=== PATIENT | female | born 1990 | race Caucasian/White ===

== ENCOUNTER 2017-02-23 14:24 | Emergency (ER) | payer OTHER ==
[2017-02-23 15:02] VITALS: BP 105/71
--- NOTE | 2017-02-23 15:40 | XRAY Preliminary Report ---
Exam: XR Toe(s) LT IMPRESSION: Nearly nondisplaced fifth proximal phalangeal fracture. [facility] SITE ID: [id number]
--- NOTE | 2017-02-23 15:43 | XRAY Report ---
EXAM: LEFT FIFTH TOE RADIOGRAPHY EXAM DATE: 02/23/2017 03:32 PM. CLINICAL HISTORY: Pain after injury. COMPARISON: None. TECHNIQUE: 3 views. FINDINGS: Bones: Oblique fracture through the fifth proximal phalangeal mid shaft with almost complete appositi on. Otherwise unremarkable. Joints: Normal. No subluxations. Soft Tissues: Soft tissue swelling. IMPRESSION: Nearly nondisplaced fifth proximal phalangeal fracture. [facility] Referring Provider Line: [phone] SITE ID: [id number]
--- NOTE | 2017-02-23 16:00 | ED Physician Documentation ---
PD HPI LOWER EXT INJURY - Stated complaint Stated Complaint: LT TOE PX - Chief complaint Chief Complaint: Ext Problem - History obtained from History obtained from: Patient - History of Present Illness PD HPI LOW EXT INJURY LOCATION: Right, Toe Type of injury: Blunt / blow Where injury occurred: Other (indoor child play area) Timing - onset: Today Timing - duration: Hours Timing - details: Abrupt onset, Still present Improved by: Rest, Immobilization Worsened by: Moving, Palpating Associated symptoms: Swelling. No: Weakness, Numbness, Tingling Contributing factors: No: Anticoagulated Similar symptoms before: Has not had sx before Recently seen: Not recently seen - Additional information Additional information: 26-year-old female was in a child's play area when she stubbed her little toe on a piece of equipment there. She has had pain in the area since then and as pain with weightbearing. Review of Systems Constitutional: denies: Fever Respiratory: denies: Cough GI: denies: Vomiting Skin: denies: Rash Musculoskeletal: reports: Extremity pain, Pain with weight bearing. denies: Neck pain, Back pain Neurologic: denies: Generalized weakness, Focal weakness, Numbness PD PAST MEDICAL HISTORY - Past Medical History Past Medical History: Yes Cardiovascular: Other Endocrine/Autoimmune: HyPOthyroidism Other Past Medical History: MVP ( mytrial valve prolapse) - Past Surgical History Past Surgical History: No - Present Medications Home Medications: Ambulatory Orders Medication Instructions Recorded Confirmed Levothyroxine Sodium [Synthroid] 88 mcg .ROUTE DAILY 02/23/17 02/23/17 Sertraline HCl [Zoloft] 20 mg PO DAILY 02/23/17 02/23/17 - Allergies Allergies/Adverse Reactions: Allergies Allergy/AdvReac Type Severity Reaction Status Date / Time cefaclor [From Ceclor] Allergy Edema Verified 02/23/17 15:40 - Social History Does the pt smoke?: No Smoking Status: Never smoker Does the pt drink ETOH?: Yes ETOH Use: Beer, Liquor Does the pt have substance abuse?: No - Immunizations Immunizations are current?: Yes - POLST Patient has POLST: No PD ED PE NORMAL - Vitals Vital signs reviewed: Yes (Normal) - General General: Alert and oriented X 3, No acute distress, Well developed/nourished - HEENT HEENT: Atraumatic - Respiratory Respiratory: No respiratory distress - Derm Derm: Normal color, Warm and dry, No rash - Extremities Extremities: No deformity, No edema, Other (There is point tenderness over the fifth toe on the left foot. There is not pain over the distal MT but over the proximal phlange. The distal n/v is intact. ) - Neuro Neuro: No motor deficit, No sensory deficit - Psych Psych: Normal mood, Normal affect Results - Vitals Vitals: Vital Signs - 24 hr 02/23/17 14:30 Temperature 37.1 C Heart Rate 79 Respiratory 14 Rate Blood Pressure 105/71 O2 Saturation 100 Oxygen O2 Source Room air - Rads (name of study) Left toes Radiology: Prelim report reviewed (Impression: Nearly nondisplaced fifth proximal phalange fracture.), EMP read indepedently, See rad report PD MEDICAL DECISION MAKING - ED course Complexity details: reviewed results, re-evaluated patient, considered differential, d/w patient ED course: 26-year-old female with fractured to the left proximal phalange of the fifth digit of her foot is placed into a postop shoe with metatarsal padding. Departure - Departure Disposition: 01 Home, Self Care Clinical Impression: Toe fracture, right Qualifiers: Encounter type: initial encounter Toe: lesser toe Fracture type: closed Phalanx : proximal Fracture alignment: nondisplaced Qualified Code(s): S92.514A - Nondisplaced fracture of proximal phalanx of right lesser toe(s), initial encounter for closed fracture Condition: Stable Instructions: ED Fx Toe Closed Follow-Up: KARLA Arevalo [Provider Group] Forms: Activity restrictions
== END 2017-02-23 16:15 | disposition home or self-care (01) ==
LOC: ED 14:24
DX: S92.515A Nondisplaced fracture of proximal phalanx of left lesser toe(s), initial encounter for closed fracture (principal); W22.8XXA Striking against or struck by other objects, initial encounter; E03.9 Hypothyroidism, unspecified; I34.1 Nonrheumatic mitral (valve) prolapse
CPT/HCPCS: 73660; 99283